=== PATIENT | female | born 1970 | race Caucasian/White ===

== ENCOUNTER → 2022-01-25 07:33 | Outpatient (CLI) | payer BC, SELFPAY ==
--- NOTE | ~2022-01-25 | MR_ITS ---
EXAMINATION: MR knee RT wo con DATE: 01/25/2022 08:06 INDICATION: Right knee pain TECHNIQUE: Magnetic resonance imaging (MRI) of the right knee was performed without intravenous contr ast. Sequences included coronal PD-weighted FSE, coronal PD-weighted FS FSE, sagittal T2-weighted FS E, sagittal PD-weighted FS FSE and axial PD weighted fat saturated FSE. COMPARISON: None. FINDINGS: Medial compartment: Complex tear, oblique and multiple planes which involves the inner half of the posterior horn of the medial meniscus. Partial-thickness chondral ulceration with chondral surface irregularity at the ante rior and posterior weightbearing medial femoral condyle. Additional deep chondral ulceration without degenerative subchondral changes at the central aspect of the medial tibial plateau. Lateral compartment: Lateral meniscus is normal. Chondral swelling with heterogeneous cartilage signal but without definit butch fissuring at the central aspect of the lateral tibial plateau. Normal cartilage along the weightb earing lateral femoral condyle. Patellofemoral compartment: Deep chondral ulceration centered along the medial patellar facet and immediately adjacent medial and lateral patellar facets. Partial-thickness chondral ulceration at the central aspect of the medial t rochlea with chondral surface irregularity without significant cartilage loss at the trochlear groove and lateral trochlea. Ligaments and tendons: Anterior and posterior cruciate ligaments are normal. The medial collateral ligament and fibular melanie ateral ligament complex are normal. The extensor mechanism is normal. The visualized medial and later al hamstring tendons as well as the iliotibial band are normal. Fluid: Small left knee joint effusion. No loose osteochondral bodies identified. Osseous/other: Normal marrow signal. No fracture or abnormal marrow replacing process. Mild soft tissue edema surrou nding the knee. More prominent edema at the superficial suprapatellar fat pad which can be seen with fat pad impingement syndrome. IMPRESSION: 1. Small complex tear at the posterior horn of the medial meniscus. 2. Tricompartmental osteoarthritis at the right knee, mild to moderate severity the patellofemoral co mpartment and moderate to high-grade patellar chondromalacia and mild with moderate grade chondromala jayme in the medial compartment and minimal left with low-grade chondromalacia in the lateral compartme nt. 3. Likely reactive small right knee joint effusion. 4. Edema at the superficial suprapatellar fat pad which can be seen with fat pad impingement syndrome . Reviewed, dictated and finalized at location B. IMPRESSION: 1. Small complex tear at the posterior horn of the medial meniscus. 2. Tricompartmental osteoarthritis at the right knee, mild to moderate severity the patellofemoral compartment and moderate to high-grade patellar chondromala jayme and mild with moderate grade chondromalacia in the medial compartment and m inimal left with low-grade chondromalacia in the lateral compartment. 3. Likely reactive small right knee joint effusion. 4. Edema at the superficial suprapatellar fat pad which can be seen with fat pa d impingement syndrome.
== END ==
PROVIDERS: PCP Orthopaedic Surgery; Visit Provider Orthopaedic Surgery
DX: S83.231A Complex tear of medial meniscus, current injury, right knee, initial encounter (principal); M17.11 Unilateral primary osteoarthritis, right knee; M22.41 Chondromalacia patellae, right knee; M79.89 Other specified soft tissue disorders
CPT/HCPCS: 73721

== ENCOUNTER 2022-02-13 01:06 | Day surgery (SDC) | payer BC, SELFPAY ==
[2022-02-08 12:28] VITALS: BMI 25.0
--- NOTE | 2022-02-08 12:34 | PC.NURSE ---
Report to the Outpatient Waiting Room, entrance under the green pavilion located off [facility], at time 1130 on date 02/13/22. OR Time: 1330. - You and your visitor will be asked a series of questions to screen for COVID 19 for your protection. - Only one visitor is allowed at this time. - The patient visitor is requested to leave or wait in car when not with patient. - A mask is required within the hospital. Patients may have clear liquids (water, carbonated beverages, clear teas, apple juice) until 3 hours prior to surgery with a maximum of 20 ounces. - No food from midnight until time of surgery Take the following medications with a SIP of water the morning of surgery: INHALER Medications to discontinue per physician: N/A Date to take last dose: N/A Please no make-up, nail slovenian, hairspray, perfume, deodorant, or body powder the day of surgery. No jewelry (including any body piercings) or valuables the day of surgery, leave them at home. Please take a shower or bath the night before, or the morning of, surgery with an antibacterial soap. Wear comfortable, loose fitting clothing. - Jewelry must be removed prior to entering the operating room. Rings and piercings that are not removed may be cut off. - The hospital will not accept responsibility for valuables. - Please leave all valuables, including medications, at home the day of surgery. If you are going home after surgery, a licensed ambulance driver paramedic must drive you home. - NO public transportation without another adult. - We recommend that an adult stay with you for 24 hours following discharge. - We also recommend that you do not drive, make important decision, drink alcoholic beverages, or take any drugs that were not prescribed by your health care provider for at least 24 hours after your discharge time. Follow any additional instructions given to you from your surgeon. If you or anyone in your household have experienced Covid symptoms in the past week, please notify your surgeon or the nurse liaison at the phone number below for possible testing. Telephone instructions given to PT Johnny NUNEZ and asked if any additional questions and then verbalized understanding. Patient advised to call surgeon office or pre surgery nurse liaison [phone] if any additional questions.
--- NOTE | 2022-02-10 13:48 | P.PNAN_ITS ---
Anes - Initial Pre Proc Eval Procedure: Operation Date: 02/13/22 12:00 Proposed Procedures p Right Knee Arthroscopy, Meniscectomy - Diego Stapleton MD Date/Time: 02/10/22 13:48 Surgeon: Diego Stapleton MD Pre Op Diagnosis: Rt Knee Medial Meniscus Tear Patient Data Age: 52 Gender: F Height: 1.68 m Weight: 70.31 kg Allergies Allergy/AdvReac Type Severity Reaction Status Date / Time Penicillins Allergy Unknown Rash Verified 02/08/22 12:27 Home Medications Medication Instructions Recorded Confirmed Type albuterol sulfate 90 mcg/actuation 2 puff inhalation QID 08/20/19 02/13/22 History aerosol inhaler rizatriptan 10 mg disintegrating 10 mg PO ONCE PRN Migraine Headache 08/20/19 02/13/22 History tablet hydrocodone 7.5 mg-acetaminophen 1 tablet PO Q4-6H PRN pain #28 tabs 02/13/22 Rx 325 mg tablet Patient hx anesthesia problems: none Family hx anesthesia problems: none Results Review: All pre-operative results and documents have been reviewed as part of the pre- operative evaluation. FORMERLY [facility] Past Medical History Medical History (Updated 01/31/22 @ 08:22 by Diego Stapleton MD) Allergies Anemia Asthma Degenerative arthritis of knee, bilateral Endometriosis Migraines Seasonal allergies Surgical History Surgical History (Updated 02/13/22 @ 13:08 by Diego Stapleton MD) History of arthroscopy of right knee February 13, 2022 History of cholecystectomy History of partial hysterectomy Family History Family History Mother Family history of lung cancer Other Hypertension Social History Social History Smoking status: Never smoker Alcohol intake: never Substance use: never Substance use type: does not use Living arrangements: with family 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 Informed Consent: The patient's anesthetic plan and its attendant risks and benefits were discussed with the patient/family/POA. Questions were solicited and answers provided to the satisfaction of the patient/family/POA.
[2022-02-13] VITALS (10 sets, daily range): BP systolic 91–122; BP diastolic 52–81; PULSE 48–74; RESP 12–20; TEMP 36.2–36.8; O2SAT 100
[2022-02-13] MEDS: ACETAMINOPHEN 500 MG TABLET 1000 MG PO (10:44)
--- NOTE | 2022-02-13 10:59 | WPDANESEPPF ---
Anes - Initial Pre Proc Eval Procedure: Operation Date: 02/13/22 12:00 Proposed Procedures p Right Knee Arthroscopy, Meniscectomy - Diego Stapleton MD Date/Time: 02/13/22 10:59 Surgeon: Diego Stapleton MD Pre Op Diagnosis: Rt Knee Medial Meniscus Tear Patient Data Age: 52 Gender: F Height: 1.68 m Weight: 70.31 kg Allergies Allergy/AdvReac Type Severity Reaction Status Date / Time Penicillins Allergy Unknown Rash Verified 02/08/22 12:27 Home Medications Medication Instructions Recorded Confirmed Type albuterol sulfate 90 mcg/actuation 2 puff inhalation QID 08/20/19 02/13/22 History aerosol inhaler rizatriptan 10 mg disintegrating 10 mg PO ONCE PRN Migraine Headache 08/20/19 02/13/22 History tablet Patient hx anesthesia problems: none Family hx anesthesia problems: none Results Review: All pre-operative results and documents have been reviewed as part of the pre-operative evaluation. 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 Informed Consent: The patient's anesthetic plan and its attendant risks and benefits were discussed with the patient/family/POA. Questions were solicited and answers provided to the satisfaction of the patient/family/POA.
--- NOTE | 2022-02-13 11:31 | WPDHPUPDATE1 ---
History and Physical Update Update Date/Time: 02/13/22 11:31 History and Physical has been reviewed, including an updated exam of the patient. There are NO changes in the patient's condition. Risks, benefits, and alternatives have been discussed and questions answered. Patient agrees to proceed with procedure.
[2022-02-13] MEDS: LACTATED RINGERS 1,000 ML 30 ML IV CONT ×2 (12:01→14:18)
[2022-02-13] MEDS: KETOROLAC 15 MG/ML VIAL (*BKC) IV PUSH (12:04)
[2022-02-13] MEDS: ceFAZolin 2 GM/D5W 50 ML 2 GM/50 ML BAG IVPB (12:08)
[2022-02-13] MEDS: TRANEXAMIC ACID 1,000 MG/10 ML AMPUL 1000 MG TOPICAL (12:35)
--- NOTE | 2022-02-13 13:08 | W.PM.PROC2 ---
Procedure Note - Detailed Date of Procedure 02/13/22 Pre-op Diagnosis Rt Knee Medial Meniscus Tear with synovitis Post-op Diagnosis Same Procedure Performed Right knee arthroscopy, partial medial meniscectomy, extensive synovectomy Surgeon Diego Stapleton MD Anesthesia General Description of Procedure The patient was identified and proper site identified and she was taken to the operating room, transferred to the OR table placing her supine taking care to pad the torso and extremities. After general anesthetic induction and intubation, a nonsterile tourniquet was placed high on the right thigh. The right lower extremity was positioned, prepped and draped in usual sterile fashion. 10 cc of 1% lidocaine was injected into the subcutaneous tissue in the area of the portals at start of the procedure, and an additional 10 at the end. The portals were established and the arthroscopy was carried out. Articular cartilage in the anterior compartment had extensive grade 4 changes on the undersurface of the patella. There was some grooving that was starting to be noted in the medial facet of the patella as well as medial femoral condyle. There was complex tearing of the medial meniscus in the posterior horn. This was contoured back to stable rim with basket forceps and a shaver. Lateral articular meniscal cartilage was in good shape. There is extensive areas of synovitis in the gutters, pouch and in the infrapatellar region. Extremity was exsanguinated the tourniquet was inflated to 300 millimeter mercury remaining up for about 12 minutes. Extensive synovectomy was carried out an ArthroCare Wand was used for hemostasis. The knee was injected with 1 gram of tranexamic acid intra-articularly after it had been flushed with a copious amount of arthroscopic fluid and then the equipment was removed. Portals were closed with three O nylon suture and a sterile dressing was applied. She tolerated the procedure well, was awakened, extubated and taken to recovery area in stable condition. There were no known intraoperative complications. Estimated blood loss was negligible; she received perioperative antibiotics. Estimated Blood Loss 15 Tourniquet Time 12 Drains No Packing No Pathology None sent Complications No immediate complications Condition Stable Disposition PACU
[2022-02-13] MEDS: fentaNYL CITRATE INJ (*CRX) 100 MCG/2 ML VIAL 25 MCG IV PUSH ×7 (13:17→14:05)
[2022-02-13] MEDS: HYDROmorphone HCL INJ (*CRX) 1 MG/ML SYR 0.5 MG IV PUSH ×2 (14:12→14:20)
[2022-02-13] MEDS: oxyCODONE HCL (*CRX) 5 MG TAB IR PO (14:42)
--- NOTE | 2022-02-13 15:30 | SUR.PHASEII ---
1525 - dr. weir notified of pt's c/o pain. dr. garcia in room talking with pt. will administer a block.
--- NOTE | 2022-02-14 08:36 | WPDANESPNB ---
Anes - Peripheral Nerve Block Date/Time: 02/13/22 08:36 I have discussed with the patient/family/POA the placement of a peripheral nerve block for post-operative pain management, including associated risks, benefits, complications, and side effects. Alternative methods of post-operative analgesia were detailed. Questions were solicited and answers provided to the satisfaction of the patient/family/POA. Time-Out: A pre-procedural Time-Out was completed immediately before starting the procedure and confirmed: Patient Identification, Site, Procedure, Patient Position and the Availability of Requisite Equipment. Clinical Indications: Acute post-operative pain management requested by the operative surgeon. Nerve Block Insertion Note Anes-nerve block: adductor canal right Patient position: supine Skin prep: chlorhexidine Needle: 22 gauge, stimulating, insulated echogenic needle. Needle length: 80 mm Technique: ultrasound Injectate: bupivacaine 0.5% with epi 5 mcg/ml (30cc - no epi) Observations: tolerated well Complications: none Procedure start time:: 1527 Procedure end time:: 153
== END 2022-02-13 16:00 | disposition home or self-care (01) ==
PROVIDERS: Visit Provider Orthopaedic Surgery
PROC: (CPT 29870; principal; 2022-02-13 12:00)
DX: S83.231A Complex tear of medial meniscus, current injury, right knee, initial encounter (principal); X50.0XXA Overexertion from strenuous movement or load, initial encounter; Y93.B9 Activity, other involving muscle strengthening exercises; M65.861 Other synovitis and tenosynovitis, right lower leg; G89.18 Other acute postprocedural pain; J45.909 Unspecified asthma, uncomplicated; Z79.51 Long term (current) use of inhaled steroids
CPT/HCPCS: 29881; 29876; 64447; A9270; J0690; J1100; J1170; J1885; J2250; J2405; J2704; J3010; J7120

== ENCOUNTER 2022-03-07 09:30 | Outpatient (RCR) | payer BC, SELFPAY ==
--- NOTE | 2022-02-16 10:06 | PTOPEVAL ---
PHYSICAL THERAPY INITIAL EVALUATION. Thank you for referring Asia Chavez to [facility].? The patient is scheduled to be seen for therapy? 2x/week for 4 weeks. Please review, sign, date and return this plan of care TRACI. I agree with and certify that the following plan of care is medically necessary. Referring Physician Date Attending Provider: Diego Stapleton MD *PT Outpatient Evaluation Start: 02/16/22 Evaluation Information Diagnosis R knee meniscectomy Onset 02/13/22 Subjective Information Pt is s/p R knee meniscectomy Query Text:As Reported By Patient/ on 02/13/22. Pts has a [employer] job Family but her job requires her to walk on rock and gravel. She enjoys exercising, playing volleyball, and walking her dogs, she would like to return to this. Pain Assessment Right Knee(s) Reported Pain Level 5 Pain Description Numbness Pain Frequency Acute,Intermittent Lowest Pain Intensity 5 Greatest Pain Intensity 8 Lower Extremity Range of Motion Gross Lower Extremity Range of Motion R knee active flexion 70 deg Comments R knee active extension -35 L knee active flexion 135 L knee active extension 0 Lower Extremity Muscle Strength Testing Gross Lower Extremity Strength L knee grossly 5/5 did not assess R knee d/t pain Palpation Assessment Palpation incisions covers in clean bandage Balance Assessment 5 Time Sit to Stand Time in Seconds 35 5 Time Sit to Stand Comments Without use of UEs, lateral Query Text:Normative Data: If Greater weight shift to L, Than 15 Seconds, 74% Increase Risk for demonstrates TTWB with RLE, Recurrent Falls significant increase in pain Gait Assessment Ambulation Assistive Devices Crutches Weight Bearing Status - Right As Tolerated Weight Bearing Comment demonstrates TTWB on R Additional Ambulation Comments - adjusted crutches this date Safety Assessment Factors Affecting Safety Pain,Surgical Interventions General Exercise Exercise Description - supine heel slides - able to Query Text:Record Sets, Reps, tolerate 2 d/t pain Resistance, and Position - SAQ - able to activate quad on / attempts - limited d/t pain - Quad set - unable to achieve positioning d/t pain - LAQ - able to active quad on 13 attempts - limited d/t pain -
--- NOTE | 2022-02-23 13:10 | PCPTNOTE ---
Patient no showed to appointment. Attempted to leave message however unable to at this time.
--- NOTE | 2022-02-28 15:09 | PCPTNOTE ---
Patient did not show up for scheduled appointment this date.
--- NOTE | 2022-03-02 12:49 | PCPTNOTE ---
Patient did not show to appointment this date. This is the 3rd no show. Left message on voicemail to have patient call clinic back.
--- NOTE | 2022-03-07 10:14 | PCPTNOTE ---
Patient no showed to appointment this date.
--- NOTE | 2022-03-08 15:28 | PCPTNOTE ---
Attending Provider: Diego Stapleton MD Patient:Asia Chavez Date of :1970 PHYSICAL THERAPY DISCHARGE SUMMARY. Patient has not returned for any further treatments since 03/07/2022. Patient has no showed up for 3 consecutive scheduled visits, therefore she will be discharged at this time. Patient?s initial visit was on 02/16/2022 and she had a total of 2 visits. Thank you for referring this patient to [facility]. Please review, sign, date and return this discharge summary TRACI. I have been updated about the patient's current status and I agree with discharge from the above service at this time. Referring Physician Date
== END 2022-03-09 10:09 | disposition home or self-care (01) ==
LOC: ANHPT 09:30
PROVIDERS: Visit Provider Orthopaedic Surgery
DX: M25.561 Pain in right knee (principal); S83.241A Other tear of medial meniscus, current injury, right knee, initial encounter
CPT/HCPCS: 97110; 97116; 97161

== ENCOUNTER 2022-05-05 14:35 | Outpatient (CLI) | payer BC, SELFPAY ==
--- NOTE | ~2022-05-05 | US_ITS ---
EXAMINATION: US venous doppler LE RT DATE: 05/05/2022 15:25 INDICATION: Right lower limb pain TECHNIQUE: Grayscale ultrasound images without and with compression and Doppler ultrasound images of the right lower extremity veins were obtained. COMPARISON: None. FINDINGS: The visualized portions of right common femoral vein, profunda (deep) femoral vein, femoral vein, pop liteal vein, peroneal trunk, posterior tibial veins, peroneal veins, gastrocnemius vein and greater s aphenous vein outflow are patent. 6.0 x 1.6 x 1.3 cm loculated fluid collection at the right poplitea l fossa which extends caudally along the superficial fascia but is likely the gastrocnemius muscle. T his could represent a Vinson's cyst although on the prior MRI of the right knee dated 01/25/2022 there is only a small ganglion cyst which remains deep to the semimembranosus muscle belly suggesting this is either new or potentially represent a hematoma situated in the setting of muscle strain. Different ial would also include abscess although there is no evidence surrounding hyperemia to more specifical ly suggest this. IMPRESSION: 1. No deep venous thrombosis in the right lower limb. 2. 6 x 1.6 x 1.3 cm loculated fluid collection at the right popliteal fossa which could represent eit her a Vinson's cyst, new since MRI dated 01/25/2022 or hematoma cysts in the setting of muscle strain. Reviewed, dictated and finalized at location A. IMPRESSION: 1. No deep venous thrombosis in the right lower limb. 2. 6 x 1.6 x 1.3 cm loculated fluid collection at the right popliteal fossa whi ch could represent either a Vinson's cyst, new since MRI dated 01/25/2022 or johnnie jeremy cysts in the setting of muscle strain.
--- NOTE | ~2022-05-05 | XR_ITS ---
XR ankle RT 2V DATE: 05/05/2022 15:00 INDICATION: History of Achilles tendon TECHNIQUE: AP and lateral views COMPARISON: None FINDINGS: Mild plantar calcaneal enthesopathy without associated erosive change or periostitis. No fracture or dislocation of the ankle or disruption of the ankle mortise. No periosteal reaction or bone destruction. IMPRESSION: Mild plantar calcaneal enthesopathy Reviewed, dictated and finalized at location B.
--- NOTE | ~2022-05-05 | XR_ITS ---
XR tibia fibula RT 2V DATE: 05/05/2022 15:01 INDICATION: Strain of Achilles tendon TECHNIQUE: AP and lateral views of right lower leg COMPARISON: None FINDINGS: No fracture or dislocation, periosteal reaction or bone destruction of the tibia or fibula. Normal alignment at the knee and ankle joints. IMPRESSION: Negative Reviewed, dictated and finalized at location B. IMPRESSION: Negative
== END 2022-05-05 14:36 | disposition home or self-care (01) ==
PROVIDERS: PCP Family Medicine; Visit Provider Nurse Practitioner Family
DX: M79.604 Pain in right leg (principal); M79.89 Other specified soft tissue disorders; M76.60 Achilles tendinitis, unspecified leg; S86.019A Strain of unspecified Achilles tendon, initial encounter
CPT/HCPCS: 73590; 73600; 93971

== ENCOUNTER → 2022-05-11 13:00 | Outpatient (CLI) | payer BC, SELFPAY ==
--- NOTE | ~2022-05-11 | MR_ITS ---
EXAMINATION: MR lower leg RT wo con DATE: 05/11/2022 13:45 INDICATION: Right calf pain. Achilles rupture. TECHNIQUE: Magnetic resonance imaging (MRI) of the right calf was performed without intravenous contr ast. Sequences included axial, sagittal and coronal fluid sensitive FSE STIR and T1-weighted FSE. The contralateral left calf is included on the coronal images. COMPARISON: Radiographs dated 05/05/22 FINDINGS: Alignment of the visualized bones is normal. Normal bone marrow signal throughout with no fracture, r eactive edema or pathologic marrow replacing process. There is subcutaneous edema most prominent abou t the right ankle and hindfoot and to lesser degree about the right calf. In the proximal calf this a ppears centered primarily about a Vinson's cyst which measures 8.5 similar proximal to distal and up t o 3.0 x 1.2 cm in maximal transaxial dimensions. A portion of the cyst appears to track within the pl anes of the superficial muscular fascia overlying the medial head of the gastrocnemius muscle. The un derlying muscle appears normal. There is mild feathery muscular edema at the distalmost soleus muscle which could be related to low-grade strain. There is mild distal Achilles tendinosis without discret e tear. Remaining muscles and tendons in the right calf are unremarkable. Flow-voids consistent with expected patency are seen in the popliteal, anterior and posterior tibial and peroneal arteries and v eins. IMPRESSION: 1. Mild feathery edema in the distalmost right soleus muscle consistent with low-grade strain. 2. Mild distal Achilles tendinosis without discrete tear. 3. Large Vinson's cyst which tracks caudally within the fascial planes of the superficial muscular fas jayme overlying the medial head gastrocnemius. Reviewed, dictated and finalized at location A. IMPRESSION: 1. Mild feathery edema in the distalmost right soleus muscle consistent with lo w-grade strain. 2. Mild distal Achilles tendinosis without discrete tear. 3. Large Vinson's cyst which tracks caudally within the fascial planes of the willis perficial muscular fascia overlying the medial head gastrocnemius.
== END ==
PROVIDERS: PCP Orthopaedic Surgery; Visit Provider Orthopaedic Surgery
DX: S86.011A Strain of right Achilles tendon, initial encounter (principal); X58.XXXA Exposure to other specified factors, initial encounter; M76.61 Achilles tendinitis, right leg
CPT/HCPCS: 73718

== ENCOUNTER 2022-06-08 10:43 | Outpatient (CLI) | payer BC, SELFPAY ==
[2022-06-08 11:04] LABS: Basophils Absolute Auto 0.1 K/mm3 (0.0-0.1); Basophils Percent Auto 0.7 % (0.2-1.2); Eosinophils Absolute Auto 0.2 K/mm3 (0-0.3); Eosinophils Percent Auto 2.9 % (0-4.4); Hematocrit 37.9 % (37.0-47.0); Hemoglobin 12.3 g/dL (12.0-15.0); Immature Granulocyte Absolute 0.02 K/mm3 (0.00-0.031); Immature Granulocyte Percent A 0.3 % (0-0.5); Lymphocytes Absolute Auto 1.79 K/mm3 (0.9-3.2); Lymphocytes Percent Auto 25.7 % (18.3-44.2); Mean Corpuscular HGB Conc 32.5 g/dl (32-36); Mean Corpuscular Hemoglobin 33.8 pg (26-34); Mean Corpuscular Volume 104.1 fl (80-100); Mean Platelet Volume 11.2 fl (7.4-10.4); Monocytes Absolute Auto 0.5 K/mm3 (0.1-0.6); Monocytes Percent Auto 7.3 % (2.6-8.5); Neutrophils Absolute Auto 4.4 K/mm3 (1.3-6.7); Neutrophils Percent Auto 63.1 % (45.5-73.1); Platelet Count Result 309 k/mm3 (150-375); Red Blood Count 3.64 M/mm3 (4.2-5.4); Red Cell Distribution Width 12.4 % (11.5-14.5)
[2022-06-08 11:19] LABS: Alanine Aminotransferase 77 U/L (6-35); Albumin Level 4.1 g/dL (3.5-5.1); Alkaline Phosphatase 47 U/L (38-126); Anion Gap 7 mmol/L (8-16); Aspartate Amino Transferase 232 U/L (14-36); Bilirubin,Total 0.3 mg/dL (0.2-1.3); Blood Urea Nitrogen 13 mg/dL (7-17); Calcium 8.4 mg/dL (8.4-10.2); Carbon Dioxide 27 mmol/L (22-30); Chloride 105 mmol/L (98-107); Estimated Glomerular Filt Rate > 60; Glucose 80 mg/dL (65-110); Sodium 139 mmol/L (137-145)
== END 2022-06-08 10:44 | disposition home or self-care (01) ==
LOC: ANHLAB 10:44
PROVIDERS: PCP Family Medicine; Visit Provider Nurse Practitioner Family
DX: K92.2 Gastrointestinal hemorrhage, unspecified (principal)
CPT/HCPCS: 36415; 80053; 85025

== ENCOUNTER 2022-06-08 17:13 | Emergency (ER) | payer BC, SELFPAY ==
--- NOTE | ~2022-06-08 | US_ITS ---
US abdomen limited INDICATION: Elevated liver function tests. PROCEDURE: Realtime right upper abdominal ultrasound. COMPARISON: No prior studies for comparison. FINDINGS: The pancreas is normal without focal mass or pancreatic ductal dilation. Liver echotexture within normal limits. Liver is enlarged measuring 16.9 cm. There is normal directional flow in the portal vein. Gallbladder is surgically absent. Common bile duct measures 2 mm. IMPRESSION: 1: Hepatomegaly. Reviewed, dictated and finalized at location A. IMPRESSION: 1: Hepatomegaly.
[2022-06-08 17:16] VITALS: BP 125/85; PULSE 75; RESP 20; TEMP 36.2; O2SAT 94
--- NOTE | 2022-06-08 17:17 | PC.NURSE ---
US made aware US ordered on pt.
--- NOTE | 2022-06-08 19:15 | PC.NURSE ---
patient states wait is too long and left triage area
== END 2022-06-08 19:15 | disposition left against medical advice (07) ==
LOC: ANHED 19:29
PROVIDERS: Emergency Provider Emergency Medicine; PCP Family Medicine
DX: R11.2 Nausea with vomiting, unspecified (principal)
CPT/HCPCS: 76705; 99199

== ENCOUNTER 2022-06-09 18:21 | Outpatient (CLI) | payer BC, SELFPAY ==
--- NOTE | ~2022-06-09 | CT_ITS ---
EXAMINATION: CT abdomen pelvis w con DATE: 06/09/2022 19:28 INDICATION: Right-sided abdomen and back pain TECHNIQUE: Computed tomography (CT) of the abdomen and pelvis was performed with 100 cc Omnipaque 350 intravenous contrast. The dose-length product was 539.17 mGy-cm. Automated exposure control and iter ative reconstruction technique were employed. COMPARISON: CT dated 08/02/2015 FINDINGS: There there breast implants. Heart size normal. The liver, there is fatty infiltration of t he liver. Status post cholecystectomy. The spleen, pancreas, adrenal glands and kidneys are unremarka ble. There is a 5 mm groundglass nodule in the right lobe, image 3. There is 2 mm right lower lobe no dule, image 3. There are additional small nodules in the right middle lobe measuring 2 mm. There is a 8 mm right lower lobe nodule, image 44 which is not significantly changed in appearance compared wit h prior examination.. There is a 1.4 x 2.6 cm cystic lesion of the pancreatic body, unchanged. The ad renal glands and kidneys are unremarkable. Nonobstructive bowel gas pattern. Small fat-containing umb ilical hernia. No free air or free fluid. Bladder is unremarkable. Small hiatal hernia. Mild thickeni ng of the distal esophagus, suspicious for esophagitis. IMPRESSION: 1. Multiple bilateral pulmonary nodules, largest being stable in the right lower lobe measuring 8 mm. Recommend follow-up low dose CT chest in 12 months. 2: Cystic mass of the pancreas measuring 2.6 x 1.4 cm. The differential diagnosis includes pseudocyst , intraductal papillary mucinous neoplasm (IPMN), mucinous cystic neoplasm (MCN), and the less common serous cystadenoma and neuroendocrine tumor. 3: Mild thickening of the distal esophagus, suspicious for esophagitis. Reviewed, dictated and finalized at location A. IMPRESSION: 1. Multiple bilateral pulmonary nodules, largest being stable in the right lowe r lobe measuring 8 mm. Recommend follow-up low dose CT chest in 12 months. 2: Cystic mass of the pancreas measuring 2.6 x 1.4 cm. The differential diagnos is includes pseudocyst, intraductal papillary mucinous neoplasm (IPMN), mucinou s cystic neoplasm (MCN), and the less common serous cystadenoma and neuroendocr ine tumor. 3: Mild thickening of the distal esophagus, suspicious for esophagitis.
== END 2022-06-09 18:22 | disposition home or self-care (01) ==
LOC: ANHIMG 18:23
PROVIDERS: PCP Family Medicine; Visit Provider Nurse Practitioner Family
DX: R10.9 Unspecified abdominal pain (principal); R16.0 Hepatomegaly, not elsewhere classified; R74.01 Elevation of levels of liver transaminase levels; K42.9 Umbilical hernia without obstruction or gangrene; K86.2 Cyst of pancreas; K44.9 Diaphragmatic hernia without obstruction or gangrene
CPT/HCPCS: 74177; Q9967

== ENCOUNTER 2022-06-12 09:56 | Outpatient (CLI) | payer BC, SELFPAY ==
[2022-06-12 10:15] LABS: Basophils Percent Auto 0.9 % (0.2-1.2); Eosinophils Absolute Auto 0.2 K/mm3 (0-0.3); Eosinophils Percent Auto 3.6 % (0-4.4); Hematocrit 38.9 % (37.0-47.0); Hemoglobin 12.8 g/dL (12.0-15.0); Immature Granulocyte Absolute 0.01 K/mm3 (0.00-0.031); Immature Granulocyte Percent A 0.2 % (0-0.5); Lymphocytes Absolute Auto 1.27 K/mm3 (0.9-3.2); Mean Corpuscular HGB Conc 32.9 g/dl (32-36); Mean Corpuscular Volume 103.5 fl (80-100); Monocytes Absolute Auto 0.4 K/mm3 (0.1-0.6); Monocytes Percent Auto 7.7 % (2.6-8.5); Neutrophils Absolute Auto 2.9 K/mm3 (1.3-6.7); Neutrophils Percent Auto 60.6 % (45.5-73.1); Platelet Count Result 312 k/mm3 (150-375); Red Blood Count 3.76 M/mm3 (4.2-5.4); Red Cell Distribution Width 12.3 % (11.5-14.5); White Blood Count 4.7 K/mm3 (4.5-10.0)
[2022-06-12 10:20] LABS: Add Urine Microscopic? NO; Appearance Urine Clear (Clear); Bilirubin Urine Negative (Negative); Blood Urine Negative (Negative); Color Urine Straw (Yellow); Glucose Urine UA Negative (Negative); Ketones Urine Negative (Negative); Leukocyte Esterase Ur Negative LEU/UL (NEGATIVE); Nitrate Urine Negative (Negative); Protein Urine Negative (Negative); Specific Grav Ur 1.005 (1.001-1.035); Urobilinogen Urine Negative mg/dL (<2.0)
[2022-06-12 10:25] LABS: Alanine Aminotransferase 44 U/L (6-35); Albumin Level 4.3 g/dL (3.5-5.1); Alkaline Phosphatase 54 U/L (38-126); Anion Gap 5 mmol/L (8-16); Aspartate Amino Transferase 49 U/L (14-36); Bilirubin,Total 0.3 mg/dL (0.2-1.3); Blood Urea Nitrogen 12 mg/dL (7-17); Calcium 8.4 mg/dL (8.4-10.2); Carbon Dioxide 27 mmol/L (22-30); Chloride 106 mmol/L (98-107); Estimated Glomerular Filt Rate > 60; Glucose 96 mg/dL (65-110); Sodium 138 mmol/L (137-145)
[2022-06-12 11:47] LABS: HAV RESULT Negative (Negative); Hepatitis B Core IgM Result Negative (Negative); Hepatitis B Surface Antigen Negative (Negative); Hepatitis C Virus Antibody Negative (Negative)
== END 2022-06-12 09:57 | disposition home or self-care (01) ==
LOC: ANHLAB 09:58
PROVIDERS: PCP Family Medicine; Visit Provider Nurse Practitioner Family
DX: Z00.00 Encounter for general adult medical examination without abnormal findings (principal); R10.9 Unspecified abdominal pain; R16.0 Hepatomegaly, not elsewhere classified; R74.8 Abnormal levels of other serum enzymes
CPT/HCPCS: 36415; 80053; 80074; 81003; 82728; 84443; 85025; 86038

== ENCOUNTER 2022-06-13 15:17 | Outpatient (CLI) | payer BC, SELFPAY ==
[2022-06-13 16:09] LABS: Basophils Percent Auto 0.3 % (0.2-1.2); Eosinophils Absolute Auto 0.3 K/mm3 (0-0.3); Eosinophils Percent Auto 4.5 % (0-4.4); Hematocrit 41.5 % (37.0-47.0); Hemoglobin 13.8 g/dL (12.0-15.0); Immature Granulocyte Absolute 0.01 K/mm3 (0.00-0.031); Immature Granulocyte Percent A 0.1 % (0-0.5); Lymphocytes Absolute Auto 0.99 K/mm3 (0.9-3.2); Lymphocytes Percent Auto 14.4 % (18.3-44.2); Mean Corpuscular HGB Conc 33.3 g/dl (32-36); Mean Corpuscular Hemoglobin 34.2 pg (26-34); Mean Platelet Volume 11.6 fl (7.4-10.4); Monocytes Absolute Auto 0.4 K/mm3 (0.1-0.6); Neutrophils Absolute Auto 5.1 K/mm3 (1.3-6.7); Neutrophils Percent Auto 74.7 % (45.5-73.1); Platelet Count Result 320 k/mm3 (150-375); Red Blood Count 4.03 M/mm3 (4.2-5.4); Red Cell Distribution Width 12.4 % (11.5-14.5); White Blood Count 6.9 K/mm3 (4.5-10.0)
[2022-06-13 16:23] LABS: Alanine Aminotransferase 42 U/L (6-35); Albumin Level 4.8 g/dL (3.5-5.1); Alkaline Phosphatase 51 U/L (38-126); Aspartate Amino Transferase 44 U/L (14-36); Bilirubin,Total 0.5 mg/dL (0.2-1.3); Lipase 41 U/L (23-300)
[2022-06-13 18:36] LABS: Iron 113 ug/dL (37-170)
[2022-06-13 18:45] LABS: Percent Iron Saturation 28 % (20-50)
[2022-06-14 12:01] LABS: CRP < 0.5 mg/dL (<1.0); Creatine Kinase 377 U/L (30-135)
[2022-06-15 11:59] LABS: Mitochondrial (M2) Ab (IgG) <=20.0 U (<=20.0)
[2022-06-15 12:34] LABS: GGT 10 U/L (3-70)
[2022-06-16 13:10] LABS: Actin Antibody (IgG) <20 U (<20)
[2022-06-16 21:06] LABS: Ceruloplasmin 30 mg/dL (18-53)
[2022-06-17 05:26] LABS: LKM 1 Antibody <=20.0 U (<=20.0)
[2022-06-21 17:57] LABS: Alpha Fetoprotein Tumor Marker 2.7 ng/mL (<6.1)
== END 2022-06-13 15:18 | disposition home or self-care (01) ==
LOC: ANHLAB 15:19
PROVIDERS: PCP Family Medicine; Visit Provider Nurse Practitioner Family
DX: R74.8 Abnormal levels of other serum enzymes (principal); R16.0 Hepatomegaly, not elsewhere classified; R10.11 Right upper quadrant pain; K86.2 Cyst of pancreas
CPT/HCPCS: 36415; 80076; 82105; 82390; 82550; 82728; 82977; 83516; 83520; 83540; 83550; 83690; 85025; 86038; 86039; 86140; 86376

== ENCOUNTER 2022-08-11 08:42 | Outpatient (CLI) | payer BC, SELFPAY ==
--- NOTE | ~2022-08-11 | MR_ITS ---
EXAMINATION: MR MRCP wo/w con/w 3D wo ind DATE: 08/11/2022 09:56 INDICATION: Elevated liver enzymes, cystic pancreatic lesion TECHNIQUE: Magnetic resonance imaging (MRI) of the abdomen was performed without and with intravenous contrast. Sequences included coronal T2-weighted SS-FSE ARC, coronal T2-weighted FS SS-FSE, coronal T2-weighted 2D FS FIESTA, Water:Coronal LAVA-Flex, sagittal T2-weighted SS-FSE ARC, axial SSFSE ARC, axial 3D DualEcho, axial DWI B=600, axial T1-weighted LAVA, FAT:Coronal LAVA-Flex, and coronal in and opposed phase LAVA-Flex. Thick-slab T2-weighted FRFSE-XL images were obtained for magnetic resonance cholangiopancreatography (MRCP). Maximum intensity projection 3-D reconstructions of the volumetric data were created by the technologist. Postcontrast sequences included a time course of axial T1-weig hted LAVA, FAT:Coronal LAVA-Flex, coronal in and opposed phase LAVA-Flex, and Water:Coronal LAVA-Flex . COMPARISON: CTs dated 06/09/2022, 08/02/2015, and 06/03/2015 CONTRAST: Multihance, 13 cc FINDINGS: ABDOMEN MRI: There is a partially imaged 8 mm nodule of the right lower lobe. The heart size is asif l. Bilateral breast implants are noted. The gallbladder is surgically absent. The liver, spleen, and adrenal glands are normal. There is a chronic 2.3 x 1.6 cm fluid collection situated between the stom ach and body of the pancreas which is without enhancement after contrast administration. The mass vivar s not definitely arise from the pancreas. There are no pathologically enlarged abdominal lymph nodes. There are no dilated loops of bowel. ABDOMEN MRCP: The common bile duct measures up to 7 mm, likely related to post cholecystectomy state. No intrahepatic biliary dilatation is identified. There are no stones or stricture of the common sina e duct. The pancreatic duct is normal in course and caliber. IMPRESSION: 1. Mild enlargement of the common bile duct, consistent with post cholecystectomy state. 2. Chronic fluid collection situated between the stomach and body of the pancreas which could reflect sequela of prior pancreatitis or possibly gastric diverticulum. Reviewed, dictated and finalized at location A. ALS ANALYST IMPRESSION: 1. Mild enlargement of the common bile duct, consistent with post cholecystecto my state. 2. Chronic fluid collection situated between the stomach and body of the pancre as which could reflect sequela of prior pancreatitis or possibly gastric divert iculum.
[2022-08-11 10:43] LABS: Alanine Aminotransferase 19 U/L (6-35); Albumin Level 4.3 g/dL (3.5-5.1); Alkaline Phosphatase 48 U/L (38-126); Amylase 66 U/L (30-110); Aspartate Amino Transferase 38 U/L (14-36); Bilirubin,Total 0.5 mg/dL (0.2-1.3); CRP < 0.5 mg/dL (<1.0); Creatine Kinase 412 U/L (30-135)
[2022-08-22 10:27] LABS: ALT 11 U/L (6-29); Alpha-2-Macroglobulin 166 mg/dL (106-279); Apolipoprotein A1 184 mg/dL (101-198); Fibrosis Score 0.04; Fibrosis Stage F0; GGT 6 U/L (3-70); Haptoglobin 97 mg/dL (43-212); Necroinflammat Act Grade A0; Total Bilirubin 0.3 mg/dL (0.2-1.2)
== END 2022-08-11 08:43 | disposition home or self-care (01) ==
PROVIDERS: PCP Family Medicine; Visit Provider Nurse Practitioner Family
DX: R74.8 Abnormal levels of other serum enzymes (principal); R16.0 Hepatomegaly, not elsewhere classified; R10.11 Right upper quadrant pain; K86.2 Cyst of pancreas; R93.89 Abnormal findings on diagnostic imaging of other specified body structures
CPT/HCPCS: 36415; 74183; 76376; 80076; 81596; 82150; 82550; 86140; A9577

== ENCOUNTER 2022-09-28 09:43 | Outpatient (CLI) | payer BC, SELFPAY ==
[2022-09-28 11:38] LABS: Erythrocyte Sedimentation Rate 14 mm/hr (0-20)
[2022-10-02 08:20] LABS: RNP Antibodies <1.0
[2022-10-03 21:31] LABS: Aldolase 6.1 U/L (<=8.1)
== END 2022-09-28 09:44 | disposition home or self-care (01) ==
LOC: ANHLAB 09:45
PROVIDERS: PCP Family Medicine; Visit Provider Internal Medicine Gastroenterology
DX: G72.9 Myopathy, unspecified (principal); M62.81 Muscle weakness (generalized)
CPT/HCPCS: 36415; 82085; 85652; 86235

== ENCOUNTER 2022-11-08 00:56 | Day surgery (SDC) | payer BC, SELFPAY ==
[2022-09-15 14:48] VITALS: BMI 24.5
--- NOTE | 2022-10-11 13:20 | PC.NURSE ---
Pt updated re rescheduled EGD date/arrival/procedure time. Pt verbalized understanding and denied any changes to home medications/health history since previous PAT call completed 09/15/21.
[2022-11-07 10:14] VITALS: BMI 24.5
[2022-11-08 07:40] VITALS: BP 121/70; PULSE 71; RESP 18; TEMP 36.6; O2SAT 100
[2022-11-08] MEDS: LACTATED RINGERS 1,000 ML 150 ML IV CONT (07:58)
--- NOTE | 2022-11-08 08:03 | P.PNAN_ITS ---
Anes - Initial Pre Proc Eval Procedure: Operation Date: 11/08/22 08:30 Proposed Procedures p Esophagogastroduodenoscopy - Alexx Saenz MD Date/Time: 11/08/22 08:03 Surgeon: Alexx Saenz MD Pre Op Diagnosis: gastric ulcer Patient Data Age: 52 Gender: F Height: 1.68 m Weight: 69 kg Last Vital Signs Temp 97.9 F 11/08/22 07:40 Pulse 71 11/08/22 07:40 Resp 18 11/08/22 07:40 BP 121/70 11/08/22 07:40 Pulse Ox 100 11/08/22 07:40 O2 Del Method Room Air 11/08/22 07:40 Allergies Allergy/AdvReac Type Severity Reaction Status Date / Time Penicillins Allergy Unknown Anaphylaxis Verified 11/08/22 07:37 Home Medications Medication Instructions Recorded Confirmed Type albuterol 90 mcg/actuation aerosol 90 mcg inhalation BID 09/15/22 11/07/22 History inhaler omeprazole 40 mg capsule,delayed 40 mg PO BID 10/11/22 11/07/22 History release Patient hx anesthesia problems: none Family hx anesthesia problems: none Results Review: All pre-operative results and documents have been reviewed as part of the pre- operative evaluation. [facility] Past Medical History Medical History (Updated 09/28/22 @ 09:42 by Alexx Saenz MD) Abnormal finding on imaging Allergies Anemia Asthma Degenerative arthritis of knee, bilateral Elevated creatine kinase level Elevated liver enzymes Endometriosis Gastric ulcer Hepatomegaly Migraines Muscle weakness Myopathic disease Pancreatic cyst Ruptured Bakers cyst right knee May 2022 RUQ pain Seasonal allergies Surgical History Surgical History History of arthroscopy of right knee February 13, 2022 History of cholecystectomy History of partial hysterectomy Family History Family History Mother Family history of lung cancer Other Hypertension Social History Social History Smoking status: Never smoker Alcohol intake: never Substance use: never Substance use type: does not use Living arrangements: with family Occupation/Education: occupation 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 Informed Consent: The patient's anesthetic plan and its attendant risks and benefits were discussed with the patient/family/POA. Questions were solicited and answers provided to the satisfaction of the patient/family/POA.
--- NOTE | 2022-11-08 08:21 | PM.HPGS ---
History of Present Illness History of Present Illness Consent: Risks, benefits, and alternatives have been discussed and questions answered. Patient agrees to proceed with procedure. Chief complaint: gastric ulcer Narrative: Asia Chavez is a 52 year old female with epigastric pain on omeprazole, found to have gastric ulcer when had EUS of pancreas, also had elevated ck Review of Systems Constitutional: Constitutional: Denies headache(s) Eyes: Eyes: Denies blurry vision ENT: Reports Normal hearing present, Denies headache(s) and Denies neck pain Cardiovascular: Cardiovascular: Denies chest pain and Denies dyspnea Respiratory: Respiratory: Denies dyspnea Gastrointestinal: Gastrointestinal: Reports no additional gastrointestinal complaints Genitourinary: Genitourinary: Denies dysuria Musculoskeletal: Musculoskeletal: Denies neck pain Integumentary/Breasts: Skin/Breast: Denies dry skin Neurologic: Reports Normal hearing present, Denies headache(s) and Denies weakness Psychiatric: Psychiatric: Denies anxiety Endocrine: Endocrine: Denies change in body appearance Hematologic/Lymphatic: Hematologic/Lymphatic: Denies easy bleeding Allergic/Immunologic: Allergic/Immunologic: Denies urticaria PMF Past Medical History Medical History (Updated 09/28/22 @ 09:42 by Alexx Saenz MD) Abnormal finding on imaging Allergies Anemia Asthma Degenerative arthritis of knee, bilateral Elevated creatine kinase level Elevated liver enzymes Endometriosis Gastric ulcer Hepatomegaly Migraines Muscle weakness Myopathic disease Pancreatic cyst Ruptured Bakers cyst right knee May 2022 RUQ pain Seasonal allergies Surgical History Surgical History History of arthroscopy of right knee February 13, 2022 History of cholecystectomy History of partial hysterectomy Family History Family History Mother Family history of lung cancer Other Hypertension Social History Social History Smoking status: Never smoker Alcohol intake: never Substance use: never Substance use type: does not use Living arrangements: with family Occupation/Education: occupation 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 care 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: No Meds Home Medications and Allergies Home Medications Medication Instructions Recorded Confirmed Type albuterol 90 mcg/actuation aerosol 90 mcg inhalation BID 09/15/22 11/07/22 History inhaler omeprazole 40 mg capsule,delayed 40 mg PO BID 10/11/22 11/07/22 History release Allergies Allergy/AdvReac Type Severity Reaction Status Date / Time Penicillins Allergy Unknown Anaphylaxis Verified 11/08/22 07:37 Vital Signs Vital Signs - 24 hr 11/08/22 07:40 Temperature 97.9 F Pulse Rate 71 Respiratory Rate 18 Blood Pressure 121/70 Pulse Oximetry 100 Oxygen Delivery Room Air Exam Const: General: comfortable and no acute distress HENMT: Face/Nose/Sinus: Normal nares present Eyes: General: appearance normal, both eyes and all related structures Neck: Neck: no JVD Resp: Auscultation: clear to auscultation bilaterally Cardio: Rate: regular rate Rhythm: regular rhythm GI: Inspection: non-distended GI Palp: Yes Soft to palpation Skin: General skin exam: normal color Neuro: General: gait normal Speech: normal speech Extrem: General: normal to inspection Psych: Mental Status: mental status grossly normal Assessment and Plan Assessment and plan (1) Gastric ulcer: Code(s): K25.9 - Gastric ulcer, unspecified as acute or chronic, without hemorrhage or perforation Status: Acute Assessment and Plan: egd with bx already on ppi
[2022-11-08 08:38] VITALS: BP 113/69; PULSE 78; RESP 14; O2SAT 100
[2022-11-08 08:48] VITALS: BP 117/77; PULSE 69; RESP 13; O2SAT 100
[2022-11-08 08:58] VITALS: BP 116/67; PULSE 67; RESP 14; O2SAT 100
== END 2022-11-08 09:04 | disposition home or self-care (01) ==
PROVIDERS: PCP Family Medicine; Visit Provider Internal Medicine Gastroenterology
PROC: 0DJ08ZZ Inspection of Upper Intestinal Tract, Via Natural or Artificial Opening Endoscopic (ICD-10-PCS; CPT 43235; principal; 2022-11-08 08:30)
DX: K25.9 Gastric ulcer, unspecified as acute or chronic, without hemorrhage or perforation (principal); J45.909 Unspecified asthma, uncomplicated; Z79.51 Long term (current) use of inhaled steroids
CPT/HCPCS: 43239; 88305; J2405; J2704; J7120

== ENCOUNTER 2023-08-29 17:07 | Emergency (ER) | payer SELFPAY ==
[2023-08-29 17:13] VITALS: BP 132/72; PULSE 72; RESP 18; TEMP 36.8; O2SAT 100
--- NOTE | 2023-08-29 17:39 | ED.GENADULT ---
HPI - General Adult General Chief complaint: Upper Respiratory Infection Stated complaint: chest tight/can't talk Source: patient, RN notes reviewed and old records reviewed Mode of arrival: ambulatory Limitations: no limitations History of Present Illness HPI narrative: 53-year-old female presents with complaint of cough, congestion, bilateral ear pain, sore throat, myalgia, fever, chills this started approximately 10 days ago and got worse 2 days ago. Patient taking [id number] medications with no relief. Patient denies chest pain, weakness, dizziness, shortness of breath MD complaint: cough, congestion Onset (ago): day(s) (10) Related Data Allergies Allergy/AdvReac Type Severity Reaction Status Date / Time Penicillins Allergy Unknown Anaphylaxis Verified 08/29/23 17:09 Review of Systems Constitutional: Constitutional: Reports no additional constitutional complaints, Reports body ache(s), Reports chills, Denies fatigue, Reports fever(s) and Reports headache(s) Eyes: Eyes: Reports no additional eye complaints and Denies blurry vision ENT: Reports system reviewed and no additional complaints, except as documented, Denies vertigo, Denies dizziness, Denies ear discharge, Reports otalgia, Denies facial pain, Reports headache(s), Reports nasal congestion, Reports nasal discharge, Reports sinus pain, Reports sinus pressure and Reports sore throat Cardiovascular: Cardiovascular: Reports no additional cardiovascular complaints, Denies chest pain, Denies chest pain at rest, Denies rapid heart rate and Denies dyspnea Respiratory: Respiratory: Reports no additional respiratory complaints, Reports chest congestion, Reports cough, Denies pain on inspiration, Denies pain with cough and Denies dyspnea Gastrointestinal: Gastrointestinal: Denies abdominal pain, Denies diarrhea, Denies nausea and Denies vomiting Integumentary/Breasts: Skin/Breast: Denies rash Neurologic: Reports system reviewed and no additional complaints, except as documented, Denies vertigo, Denies dizziness and Denies headache(s) Endocrine: Endocrine: Denies fatigue PMFSH Past Medical History Medical History Abnormal finding on imaging Allergies Anemia Asthma Degenerative arthritis of knee, bilateral Elevated creatine kinase level Elevated liver enzymes Endometriosis Gastric ulcer Hepatomegaly Migraines Muscle weakness Myopathic disease Pancreatic cyst Positive JIM (antinuclear antibody) Ruptured Bakers cyst right knee May 2022 RUQ pain Seasonal allergies Surgical History Surgical History History of arthroscopy of right knee February 13, 2022 History of cholecystectomy History of partial hysterectomy Family History Family History Mother Family history of lung cancer Other Hypertension Social History Social History Smoking status: Never smoker Alcohol intake: never Substance use: never Substance use type: does not use Living arrangements: with family Occupation/Education: occupation 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 There is no relevant family history pertinent to the patient complaint. Exam Const: General: cooperative, no acute distress, ill appearing acutely and well nourished Nutritional Appearance: well nourished Orientation/consciousness: patient oriented x3 Limitations: no limitations HENMT: Head: normal to inspection and normocephalic Ears: external ears normal, mastoids normal, Abnormal EAC present and TM abnormal wth effusion Face/Nose/Sinus: normal facial exam Face and sinus: normal facial exam Mo
== END 2023-08-29 17:48 | disposition home or self-care (01) ==
PROVIDERS: Emergency Provider Registered Nurse; PCP Family Medicine
DX: J40 Bronchitis, not specified as acute or chronic (principal); J01.90 Acute sinusitis, unspecified; H65.03 Acute serous otitis media, bilateral; J45.909 Unspecified asthma, uncomplicated; N80.9 Endometriosis, unspecified; Z90.711 Acquired absence of uterus with remaining cervical stump
CPT/HCPCS: 99213; G0463

== ENCOUNTER 2024-09-27 09:52 | Emergency (ER) | payer OTHER, SELFPAY ==
--- OUTSIDE RECORDS SUMMARY | 2024-09-27 10:06 | XMS_ITS | Encounter Summary ---
Author Organization [facility] Address [address] [place] [address] Care Team Providers Care Secondary Market Manager Name Role Phone Unavailable Primary Care Provider Unavailabl e Encounter Details Date Type Department Care Team (Late st Contact Info) Description 09/24/2024 External Device Data [facility] ABSTRACTION Provider, Abstract NO ADDRESS ON FILE Social History Tobacco Use Types Packs/Day Years Used Date Smoking Tobacco: Never Smokeless Tobacco: Never Alcohol Use Standard Drinks/Week Comments Yes 2 (1 standard drink = 0.6 oz pur e alcohol) Comments No Sex and Gender Information Value Date Recorded Sex Assigned at Not on file Legal Sex Female 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
--- OUTSIDE RECORDS SUMMARY | 2024-09-27 10:06 | XMS_ITS | Clinical Summary ---
Author Organization [facility] Medical Office Building [address] Address [address] [place] [address] Care Team Providers Care Underground Production Foreperson Name Role Phone Tyrone Teresa MD Primary Care Provider Ras Hancock MD Unavailable [phone] Allergies Active Allergy Reactions Criticality Noted Date Comments Penicillins Medications albuterol HFA (PROVENTIL HFA,VENTOLIN HFA) 90 mcg/actuation inhaler Inhale 2 puffs as needed for wheezing. Active butalbital-acet aminophen-caffe ine (FIORICET, ESGIC) 50-325-40 mg per tablet Take 1 tablet by mouth every 4 (four) hours as needed for headaches. 30 tablet 12/24/2017 Active lansoprazole (PREVACID) 30 mg capsule TAKE 1 CAPSULE BY MOUTH DAILY 30 capsule 11 10/18/2020 Active celecoxib (CeleBREX) 200 mg capsule daily 05/17/2022 Active Active Problems Problem Noted Date Diagnosed Date Migraine 11/22/2015 Overview (12/08/2016): Migraines Asthma 11/19/2014 Overview (12/08/2016): Asthma Surgical History Surgery Date Site/Laterality Comments OTHER SURGICAL HISTORY 1991 : 5 hr labor OTHER SURGICAL HISTORY 1998 : 6 hr labor OTHER SURGICAL HISTORY 2003 : 6 hr labor TOTAL ABDOMINAL HYSTERECTOMY SANDEEP AUGMENTATION MAMMOPLASTY Breast Augmentation CHOLECYSTECTOMY Cholecystectomy OTHER SURGICAL HISTORY Active Bleeding Ulcers x 2 Medical History Medical History Date Comments Hx Other Medical ; Outc ome: 40W0D week 7lb(s) 6 oz Female Hx Other Medical ; Outc ome: 40W0D week 7lb(s) 2 oz Female Hx Other Medical ; Outc ome: 40W0D week 5lb(s) 1 oz Male Asthma Asthma Hx Other Medical Gall Bladder Abnormal Pap smear of cervix PONV (postoperative nausea and vomiting) Anemia Chronic diarrhea Migraines Family History Medical History Relation Name Comments Breast cancer Mother Cancer, breast ; Lung cancer Mother Cancer, lung; C ause of : Cancer, lung Osteoporosis Mother Osteoporosis; Diabetes Other 1 Diabetes mellit us; Diabetes Other 2 Grandmother Diabetes mellit us; Relation Name Status Comments Mother Other 1 Other 2 Grandmother Social History Tobacco Use Types Packs/Day Years Used Date Smoking Tobacco: Never Smokeless Tobacco: Never Tobacco Cessation:Counseling Given: Not Answered Alcohol Use Standard Drinks/Week Comments No 0 (1 standard drink = 0.6 oz pur e alcohol) AUDIT-C Answer Date Recorded Q1: How often do you have a drink containing alc ohol? 2-3 times a week 06/19/2022 Q2: How many drinks containi ng alcohol do you have on a typical day when you are drinking? 1 or 2 06/19/2022 Q3: How often do you have si x or more drinks on one occasion? 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 Gender Identity Not on file Sexual Orientation Not on file Obstetrics History Para Term AB IAB SAB Ectopic Multiple Livin g Live Births 3 3 3 3 3 Date Outcome GA Total Labor Labor/2nd/3rd Weight Sex Type Anes PTL Nina A1 A5 Name Clin 2 Term 40w 0d 3.345 kg (7 lb 6 oz) F Vag-S pont Living 9 Term 40w 0d 3.232 kg (7 lb 2 oz) F Vag-S pont Living 4 Term 40w 0d 2.296 kg (5 lb 1 oz) M Vag-S pont Living Last Filed Vital Signs Vital Sign Reading Time Taken Comments Blood Pressure 98/65 06/19/2022 11:50 AM CDT Pulse 63 06/19/2022 11:50 AM CDT Temperature 36.5 ??C (97.7 ??F) 06/19/2022 9:48 AM CD T Respiratory Rate 10 06/19/2022 11:50 AM CDT Oxygen Saturation 99% 06/19/2022 11:50 AM CDT Inhaled Oxygen Concentration - - Weight 70.8 kg (156 lb) 06/19/2022 9:48 AM CDT Height 170.2 cm (5' 7 ) 06/19/2022 9:48 AM CDT Body Mass Index 24.43 06/19/2022 9:48 AM CDT Plan of Treatment Health Maintenance Due Date Last Done Comments Colon Cancer Screening-Colonoscopy 1972 Hepatitis C Screening 1972 Pneumococcal vaccine <65 (1 of 2 - PCV) 01/23/1978 DTaP/Tdap/Td Vaccine (1 - Tdap) 01/23/1983 Hepatitis B Screening 01/23/1990 Breast Cancer Screening-Mammogram 04/11/2018 04/11/2017, 04/11/2017, 12/03/2015 Depression Screening 08/06/2021 08/06/2020, 07/28/2019, 12/21/2017 Regular Well Visit/Exam 18-64 08/06/2021 08/06/2020, 07/28/2019 Zoster Vaccine (1 of 2) 01/23/2022 Influenza Vaccine (#1) 2024 08/04/2015 Cervical Cancer Screening Discontinued 12/21/2017, Procedures Procedure Name Priority Date/Time Associated Diagnosis Comments THINPREP INFANT LEAD TEACHER PAP (IMAGE GUIDED) LIQUID-BASED PREP Routine 12/21/2017 10:10 AM CDT Well woman exam SCREENING MAMMOGRAM BILATERAL W KIRAN W IMPLANTS Routine 04/11/2017 4:43 PM CDT from Last 3 Months or Most Recently Relevant to Health Maintenance Results * ThinPrep Gynecologic Pap Test (Image-guided), Liquid-based Preparation (12/21/2017 10:10 AM CDT) Report status [facility] [place] Comment:Result canceled by t he ancillary CLINICAL INFORMATION: [facility] [place] Comment:Information not prov ided LMP [facility] [place] Comment:INFORMATION NOT PROV IDED Previous Pap [facility] [place] Comment:INFORMATION NOT PROV IDED Prev. Bx [facility] [place] Comment:INFORMATION NOT PROV IDED SOURCE: [facility] [place] Comment:Information not prov ided Pap, specimen adequacy [facility] [place] Comment: Satisfactory for evaluation. Endocervical/transformation zone component present. Age and/or menstrual status not provided Pap, general categorization [facility] [place] Comment:Result canceled by t he ancillary HPV interp [facility] [place] Comment:Negative for intraep ithelial lesion or malignancy. Infection: [facility]ELED [facility] [place] Comment:Result canceled by t he ancillary COMMENTS [facility] - Comment: This Pap test has been evaluated with computer assisted technology. Paper Machine Backtender [facility] - Comment: MEF, CT(ASCP) CT screening location: [place] [address] [address] [place] [address] Review territory outside sales manager [facility]CELED [facility] - Comment:Result canceled by t he ancillary Pathologist [facility] - Comment:Result canceled by t he ancillary Comment [facility] [place] Comment: EXPLANATORY NOTE: The Pap is a screening test for cervical cancer. It is not a diagnostic test and is subject to false negative and false positive results. It is most reliable when a satisfactory sample, regularly obtained, is submitted with relevant clinical findings and history, and when the Pap result is evaluated along with historic and current clinical information. 12/21/2017 10:1 0 AM CDT 12/24/2017 6:16 AM CDT Narrative Resulting Agency Comment Performing Organization Information: ?Site ID: ?[facility] ?Address: [facility] [address] [place] [address] ?Director: Ernestine Fournier us Keesha Ochoa SEPTIC PUMP TRUCK DRIVER LAB PATHOLOGY ORDERABLES Final Result [facility] [place] * Screening Mammogram Bilateral W Kiran W Implants (04/11/2017 4:43 PM CDT) Anatomical Region Laterality Modality Breast Bilateral Mammography 04/11/2017 4:43 PM CDT Narrative 04/11/2017 4:43 PM CDT SCRN IMPLANTS W KIRAN BI ??Acc#: ??[id number] DATE OF EXAM: ??Apr ?? 2017 ?? SCRN IMPLANTS W KIRAN BI HISTORY: Screening.. Family history of breast cancer (mother, premenopausal). ??Right lateral breast implants. TECHNIQUE: Craniocaudal and mediolateral oblique views with and without implant displacement technique of each breast were obtained with bilateral breast tomosynthesis. COMPARISON: 12/03/2015 FINDINGS: The breasts are heterogeneously dense. No dominant mass, skin thickening, nipple retraction or suspicious cluster of microcalcifications is seen. ??Visualized portions of the implant margins appear intact Digital technology was employed plus computer aided detection software (R2) was utilized in interpretation of these images. ??This facility utilizes a reminder system to notify patient's of yearly mammograms. IMPRESSION: 1. ??NO FINDINGS SUSPICIOUS FOR MALIGNANCY. 2. ??ANNUAL FOLLOW-UP RECOMMENDED. BI-RADS 1 Electronically signed by: Sterling Puri Jr., M.D. Interpreting Physician: ??DR STERLING PURI M.D. ??Read on: ??Apr ??2016 11:44A Transcribed by: ??PSC ??On: Apr ??2016 11:42A Approved Electronically by: ??JAXSON Monroe, DR LIM ??on: ??Apr ??2016 11:42A Ordering DR: REFERRAL SELF Attending DRJose A OCHOA Attending: ??KEESHA OCHOA NP Requesting: ??SELF, REFERRAL Requesting Fax: ??-- Attending Fax: ??[phone] Attending ID: ??[id number] Requesting ID: ??[id number] Report To 1 ID: ??[id number] Report To 1 Name: ??KEESHA OCHOA NP Report To 1 FAX: ??[phone] NextGen Order #: ?? Procedure Note Miscellaneous, Not In File / Provider, MD Wendy - 04/11/2017 SCRN IMPLANTS W KIRAN BI Acc#: [id number] DATE OF EXAM: Apr 11 2017 SCRN IMPLANTS W KIRAN BI HISTORY: Screening.. Family history of breast cancer (mother, premenopausal). Right lateral breast implants. TECHNIQUE: Craniocaudal and mediolateral oblique views with and without implant displacement technique of each breast were obtained with bilateral breast tomosynthesis. COMPARISON: 12/03/2015 FINDINGS: The breasts are heterogeneously dense. No dominant mass, skin thickening, nipple retraction or suspicious cluster of microcalcifications is seen. Visualized portions of the implant margins appear intact Digital technology was employed plus computer aided detection software (R2) was utilized in interpretation of these images. This facility utilizes a reminder system to notify patient's of yearly mammograms. IMPRESSION: 1. NO FINDINGS SUSPICIOUS FOR MALIGNANCY. 2. ANNUAL FOLLOW-UP RECOMMENDED. BI-RADS 1 Electronically signed by: Sterling Puri Jr., M.D. Interpreting Physician: DR STERLING PURI M.D. Read on: Apr 11 2017 11:44A Transcribed by: PSC On: Apr 11 2017 11:42A Approved Electronically by: JAXSON Monroe, DR LIM on: Apr 11 2017 11:42A Ordering DR: REFERRAL SELF Attending DR: KEESHA OCHOA Attending: KEESHA OCHOA NP Requesting: SELF, REFERRAL Requesting Fax: -- Attending Attending ID: [id number] Requesting ID: [id number] Report To 1 ID: [id number] Report To 1 Name: KEESHA OCHOA NP Report To 1 FAX: [phone] NextGen Order #: us Not In File Miscellaneous IMG MAMMO PROCEDURES F inal Result from Last 3 Months or Most Recently Relevant to Health Maintenance Insurance [employer] O[employer] Advance Directives For more information, please contact: [phone] * Full Code (Latest Code Status on File) Date Activated Date Inactivated Comments 06/19/2022 9:56 AM 06/19/2022 4:24 PM Care Teams Underground Production Foreperson Relationship Specialty Start Date End Date Tyrone Teresa MD [address] [place] [address] PCP - General 05/25/17 Ras Hancock MD [address] [place] [address] Consulting Physician Rheumatology 03/23/23
--- OUTSIDE RECORDS SUMMARY | 2024-09-27 10:06 | XMS_ITS | Encounter Summary ---
Author Organization [facility] Address [address] [place] [address] Care Team Providers Care Education Dean Name Role Phone Tyrone Teresa MD Primary Care Provider [phone] Encounter Details Date Type Department Care Team (Late st Contact Info) Description 01/17/2024 Lab Requisition [facility] DermPath Lab [address] [facility] [place] [address] Ping Vital MD [address] [facility] [address] [place] [address] Social History Tobacco Use Types Packs/Day Years Used Date Smoking Tobacco: Never Smokeless Tobacco: Never Sex and Gender Information Value Date Recorded Sex Assigned at Not on file Gender Identity Not on file Sexual Orientation Not on file documented as of this encounter Plan of Treatment Not on file documented as of this encounter Procedures Procedure Name Priority Date/Time Associated Diagnosis Comments DERMATOPATHOLOGY Routine 01/17/2024 11:2 8 AM CDT documented in this encounter Results * DERMATOPATHOLOGY (01/17/2024 11:28 AM CDT) Case Report Dermatopathology Report ? Case: [id number] ? Authorizing Provider: ??Ping Vital MD ?Collected: ? 01/17/2024 11:28 AM ? Ordering Location: ? [facility] - ??Received: ?01/18/2024 07:37 AM ? DermPath Lab ? Pathologist: ? Melissa Muniz MD ? Specimens: ?? A) - Skin, right upper lip ? B) - Skin, left nose ? 4 4:36 PM CDT DERMATOPATHOLOGY LABORATORY Final Diagnosis Specimen A. SKIN, right upper lip: FRAGMENTS OF EPIDERMIS (D23.9) (see microscopic description) Specimen B. SKIN, left nose: DERMAL FIBROSIS (L90.5) (see microscopic description and comment) 4 4:36 PM CDT DERMATOPATHOLOGY LABORATORY Clinical History A-B: pink papule; favor FP r/o NMSC. 4 4:36 PM T DERMATOPATHOLOGY LABORATORY Gross Description Specimen A: Received is one formalin filled container labeled with the patient's name and designated right upper lip. The specimen consists of a shave biopsy measuring 1x1x1 mm. Jar 0. Specimen B: Received is one formalin filled container labeled with the patient's name and designated left nose. The specimen consists of a shave biopsy measuring 2x2x1 mm. Jar 0. 4 4:36 PM T DERMATOPATHOLOGY LABORATORY Microscopic Description Specimen A. SKIN, right upper lip: There are fragments of squamous epithelium without evidence of epithelial dysplasia or malignancy. There is minimal dermis present for evaluation. Additional deeper sections were obtained and reviewed. Specimen B. SKIN, left nose: The epidermis is unremarkable. There is focal dermal fibrosis. Additional deeper sections were obtained and reviewed. COMMENT: These findings could be seen in, but are not diagnostic of, a fibrous papule. Given the superficial nature of the biopsy specimen, a deeper dermal process cannot be excluded. 4 4:36 PM T DERMATOPATHOLOGY LABORATORY Disclaimer An external and internal positive and negative controls are appropriate for the histochemical, immunohistochemical and immunofluorescence stain(s) in this case (if any), except where stated explicitly. The performance characteristics of the stain(s) cited in this report were developed and its performance characteristic determined by the Dermatopathology Laboratory at [facility], directed by Dr. Jordan Cruz. These tests need not be, and therefore are not, approved by the [place] Food and Drug Administration. The tests are used for clinical purposes. Billing Codes Specimen Charges Stain Charges 50796 92482 1 1 4 4:36 PM CDT DERMATOPATHOLOGY LABORATORY Embedded Images 4 4:36 PM CDT DERMATOPATHOLOGY LABORATORY Pathology/Cytology TISSUE SPECIMEN FROM SKIN / Unknown 01/17/2024 11:28 AM CDT 01/18/2024 7:37 AM CDT Miscellaneous samples (specimen) TISSUE SPECIMEN FROM SKIN / Unknown 01/17/2024 11:28 AM CDT 01/18/2024 7:37 AM CDT Ping Vital MD LAB - PATHOLOGY/CYTO LOGY ORDERABLES DERMATOPATHOLOGY LABORATORY [facility] - Department of Dermatology [facility] Specialized Medicine [address] [place] [address], [address] [phone] documented in this encounter Visit Diagnoses Not on filedocumented in this encounter Care Teams Education Dean Relationship Specialty Start Date End Date Tyrone Teresa MD [address] [place] [address] PCP - General 11/21/22 documented as of this encounter
--- OUTSIDE RECORDS SUMMARY | 2024-09-27 10:06 | XMS_ITS | Referral Summary ---
Author Organization [facility] [employer] Address [address] [facility] [place] [address] Care Team Providers Care Public Works Manager Name Role Phone Tyrone Teresa MD Primary Care Provider Source Comments [facility],non-owned Affiliates and Associated Physician Practices is amultiple site organization consisting of ambulatory clinics and hospital sitesin [place], [place], [place] and [place]. This disclosure is being madepursuant to the Care Everywhere program and may not contain all information available regarding this patient. Last updated 18.[facility] [employer] Allergies Active Allergy Reactions Criticality Noted Date Comments Penicillins Rash Medium 07/19/2017 Medications * Be aware that medications may not be up to date on this document. Alwaysverify current medications with the patient. Medication Sig Dispensed Refills Start Date End Date Status Albuterol Sulfate (PROAIR HFA IN) Active methylPREDNISolone (MEDROL DOSEPAK) 4 MG tablet Take by mouth as directed 1 Each 07/19/2017 Active predniSONE (DELTASONE) 20 MG tabletIndications:Pe rsistent asthma with acute exacerbation, unspecified asthma severity (HCC) Take 2 tabs daily with food for 5 days. 10 tablet 02/01/2018 Active promethazine-DM syrupIndications:Col d Symptoms,Cough,Nasal Congestion Take 5 mL by mouth every 4 hours as needed for Cough Reasons: Cold Symptoms, Cough, Stuffy Nose 118 mL 02/01/2018 Active albuterol HFA (PROAIR HFA) 108 (90 BASE) MCG/ACT inhalerIndications:L ower respiratory tract infection,Persistent asthma with acute exacerbation, unspecified asthma severity (HCC) Inhale 2 puffs by mouth every 4 hours as needed for Shortness of Breath, Wheezing or Cough 1 Inhaler 02/01/2018 Active benzonatate (TESSALON) 100 MG capsuleIndications:L ower respiratory tract infection Take 1 capsule by mouth 3 times daily as needed for Cough 30 capsule 02/01/2018 Active Social History Tobacco Use Types Packs/Day Years Used Date Smoking Tobacco: Never Smokeless Tobacco: Never Sex and Gender Information Value Date Recorded Sex Assigned at Not on file Gender Identity Not on file Sexual Orientation Not on file Last Filed Vital Signs Vital Sign Reading Time Taken Comments Blood Pressure 120/76 07/27/2018 10:02 AM BENDER HAND Pulse 71 07/27/2018 10:02 AM BENDER HAND Temperature 36.5 ??C (97.7 ??F) 07/27/2018 10:[address] Respiratory Rate - - Oxygen Saturation 99% 07/27/2018 10:02 AM BENDER HAND Inhaled Oxygen Concentration - - Weight 68 kg (150 lb) 07/27/2018 10:02 AM BENDER HAND Height 170.2 cm (5' 7 ) 07/27/2018 10:02 AM BENDER HAND Body Mass Index 23.49 07/27/2018 10:02 AM BENDER HAND Plan of Treatment Not on file Care Teams Public Works Manager Relationship Specialty Start Date End Date Tyrone Teresa MD [address] [place] [address] PCP - General 11/21/22
--- OUTSIDE RECORDS SUMMARY | 2024-09-27 10:06 | XMS_ITS | Referral Summary ---
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 Gender Identity Not on file Sexual Orientation [...] 06/19/2022 9:48 AM CDT Plan of Treatment Not on file Procedures Procedure Name Priority Date/Time Associated Diagnosis Comments THINPREP WIND TURBINE CONTROLS ENGINEER PAP (IMAGE GUIDED) LIQUID-BASED PREP Routine 12/21/2017 10:10 AM CDT Well woman exam SCREENING MAMMOGRAM BILATERAL W KIRAN W IMPLANTS Routine 04/11/2017 4:43 PM CDT from Last 3 Months or Most Recently Relevant to Health Maintenance Results * ThinPrep Gynecologic Pap Test (Image-guided), Liquid-based Preparation (12/21/2017 10:10 AM CDT) Report status [facility] [place] Comment:Result canceled by rebecca mtz ancillary CLINICAL INFORMATION: [facility] [place] Comment:Information not prov ided LMP [facility] [place] Comment:INFORMATION NOT PROV IDED Previous Pap [facility] [place] Comment:INFORMATION NOT PROV IDED Prev. Bx [facility] [place] Comment:INFORMATION NOT PROV IDED SOURCE: [facility] - Comment:Information not prov ided Pap, specimen adequacy [facility] - Comment: Satisfactory for evaluation. Endocervical/transformation zone component present. Age and/or menstrual status not provided Pap, general categorization [facility] [place] Comment:Result canceled by t he ancillary HPV interp [facility] [place] Comment:Negative for intraep ithelial lesion or malignancy. Infection: [facility] [place] Comment:Result canceled by t he ancillary COMMENTS [facility] - Comment: This Pap test has been evaluated with computer assisted technology. Merchandise Collector [facility] - Comment: MEF, CT(ASCP) CT screening location: [place] [address] [address] [place] [address] Review corporate relations director CANCELED [facility] - Comment:Result canceled by t he ancillary Pathologist [facility] [place] Comment:Result canceled by t he ancillary Comment [facility] - Comment: EXPLANATORY NOTE: The Pap is a [...] Comment Performing Organization Information: ?Site ID: ?Name: [facility] ?Address: Counts include [address] at the [facility] [address] [place] [address] ?Director: Ernestine Fournier us Keesha Ochoa SECURITY CLERK LAB PATHOLOGY ORDERABLES Final Result [facility] [place] * Screening Mammogram Bilateral W Kiran W Implants (04/11/2017 4:43 PM CDT) Anatomical Region Laterality Modality Breast Bilateral Mammography 04/11/2017 4:43 PM CDT Narrative 04/11/2017 4:43 PM CDT SCRN IMPLANTS W KIRAN BI ??Acc#: ??[id number] DATE OF EXAM: ??Apr ??2016 ?? SCRN IMPLANTS W KIRAN BI HISTORY: [...] ??2016 11:42A Ordering DR: REFERRAL SELF Attending DR: KEESHA OCHOA Attending: ??KEESHA OCHOA NP Requesting: ??SELF, REFERRAL Requesting Fax: ??-- Attending Fax: ??[phone] Attending ID: ??[id number] Requesting ID: ??[id number] Report To 1 ID: ??[id number] Report To 1 Name: ??KEESHA OCHOA NP Report To 1 FAX: ??[phone] NextGen Order #: ?? Procedure Note Miscellaneous, Not In File / Provider, MD Wendy - 04/11/2017 SCRN IMPLANTS W KIRAN BI Acc#: [id number] DATE OF EXAM: Apr 11 2017 SCRN [...] on: Apr 11 2017 11:44A Transcribed by: [facility] On: Apr 11 2017 11:42A Approved Electronically by: JAXSON Monroe, DR LIM on: Apr 11 2017 11:42A Ordering DR: REFERRAL SELF Attending DR: KEESHA OCHOA Attending: KEESHA OCHOA NP Requesting: SELF, REFERRAL Requesting Fax: -- Attending Attending ID: [id number] Requesting ID: [id number] Report To 1 ID: [id number] Report To 1 Name: KEESHA OCHOA NP Report To 1 FAX: [phone] NextGen Order #: us Not In File Miscellaneous IMG MAMMO PROCEDURES F inal Result from Last 3 Months or Most Recently Relevant to Health Maintenance Insurance [employer] O[employer] Advance Directives For more information, please contact: [phone] * Full Code (Latest Code Status on File) Date Activated Date Inactivated Comments 06/19/2022 9:56 AM 06/19/2022 4:24 PM Care Teams Lace Pinner Relationship Specialty Start Date End Date Tyrone Teresa MD [address] [place] [address] PCP - General 05/25/17 Ras Hancock MD [address] [place] [address] Consulting Physician Rheumatology 03/23/23
--- OUTSIDE RECORDS SUMMARY | 2024-09-27 10:06 | XMS_ITS | Clinical Summary ---
Author Organization [facility] Address [address] [place] [address] Care Team Providers Care Breeder Service Technician Name Role Phone Tyrone Teresa MD Primary Care Provider [phone] Source Comments [facility],non-owned Affiliates and Associated Physician Practices is amultiple site organization consisting of ambulatory clinics and hospital sitesin [place], [place], [place] and [place]. This disclosure is being madepursuant to the Care Everywhere program and may not contain all information available regarding this patient. Last updated 18.[facility] Allergies Active Allergy Reactions Criticality Noted Date [...] Inhaler 02/01/2018 Active benzonatate (TESSALON) 100 MG capsuleIndications:Francisca conteh respiratory tract infection Take 1 capsule by [...] Comments Blood Pressure 120/76 07/27/2018 10:02 AM MANAGER DISASTER RECOVERY Pulse 71 07/27/2018 10:02 AM MANAGER DISASTER RECOVERY Temperature 36.5 ??C (97.7 ??F) 07/27/2018 10:[address] Respiratory Rate - - Oxygen Saturation 99% 07/27/2018 10:02 AM MANAGER DISASTER RECOVERY Inhaled Oxygen Concentration - - Weight 68 kg (150 lb) 07/27/2018 10:02 AM MANAGER DISASTER RECOVERY Height 170.2 cm (5' 7 ) 07/27/2018 10:02 AM MANAGER DISASTER RECOVERY Body Mass Index 23.49 07/27/2018 10:02 AM MANAGER DISASTER RECOVERY Plan of Treatment Health Maintenance Due Date Last Done Comments COLOGUARD (AGES 45-75) - COL ON CA SCREENING 1972 COLON MONITORING 1972 COLONOSCOPY - COLON CA SCREENING 1972 CT COLONOGRAPHY - COLON CA SCREENING 1972 Colorectal Cancer Screening 1972 FIT - COLON CA SCREENING 1972 FLEX SIG - COLON CA SCREENING 1972 LIPID TESTING 1972 MAMMOGRAM 1972 PAP SMEAR 1972 HIV SCREENING 01/23/1987 HEPATITIS C SCREENING 01/19/1990 DTAP/TDAP/TD VACCINES (1 - Tdap) 01/23/1991 HEPATITIS B VACCINE (1 of 3 - 19+ 3-dose series) 01/23/1991 PNEUMOCOCCAL VACCINE 50+ (1 of 1 - PCV) 01/23/2022 ZOSTER VACCINE (1 of 2) 01/23/2022 COVID-19 VACCINE (1 - 2023-2 5 season) 2024 INFLUENZA VACCINE (#1) 2024 DEPRESSION SCREENING 09/03/2024 HIB VACCINE Aged Out No longer eligi ble based on patient's age to complete this topic HPV VACCINE Aged Out No longer eligi ble based on patient's age to complete this topic MENINGOCOCCAL (Group B) VACCINE Aged Out No longer eligible based on patient's age to complete this topic MENINGOCOCCAL VACCINE Aged Out No zunilda roger eligible based on patient's age to complete this topic PNEUMOCOCCAL VACCINE Aged Out No long er eligible based on patient's age to complete this topic Care Teams Breeder Service Technician Relationship Specialty Start Date End Date Tyrone Teresa MD [address] [place] [address] PCP - General 11/21/22
--- OUTSIDE RECORDS SUMMARY | 2024-09-27 10:06 | XMS_ITS | Patient Health Summary ---
Author Organization [facility] Address [address] [place] [address] Care Team Providers Care Resume Specialist Name Role Phone Tyrone Teresa MD Primary Care Provider [phone] Note from [facility],non-owned Affiliates and Associated Physician Practices is amultiple site organization consisting of ambulatory clinics and hospital sitesin [place], [place], [place] and [place]. This disclosure is being madepursuant to the Care Everywhere program and may not contain all information available regarding this patient. Last updated 18.[facility] Allergies * Penicillins(Rash) -Medium Criticality Medications * Be aware that medications may not be up to date on this document. Alwaysverify current medications with the patient. * Albuterol Sulfate (PROAIR HFA IN) * methylPREDNISolone (MEDROL DOSEPAK) 4 MG tablet(Started 07/19/2017) Take by mouth as directed * predniSONE (DELTASONE) 20 MG tablet(Started 02/01/2018) Take 2 tabs daily with food for 5 days. * promethazine-DM syrup(Started 02/01/2018) Take 5 mL by mouth every 4 hours as needed for Cough Reasons: Cold Symptoms, Cough, Stuffy Nose * albuterol HFA (PROAIR HFA) 108 (90 BASE) MCG/ACT inhaler(Started 02/01/2018) Inhale 2 puffs by mouth every 4 hours as needed for Shortness of Breath, Wheezing or Cough * benzonatate (TESSALON) 100 MG capsule(Started 02/01/2018) Take 1 capsule by mouth 3 times daily as needed for Cough Social History Tobacco Use Types Packs/Day Years Used Date Smoking Tobacco: Never Smokeless Tobacco: Never Sex and Gender Information Value Date Recorded Sex Assigned at Not on file Gender Identity Not on file Sexual Orientation Not on file Last Filed Vital Signs Vital Sign Reading Time Taken Comments Blood Pressure 120/76 07/27/2018 10:02 AM COUPON AND BOND COLLECTION CLERK Pulse 71 07/27/2018 10:02 AM COUPON AND BOND COLLECTION CLERK Temperature 36.5 ??C (97.7 ??F) 07/27/2018 10:[address] Respiratory Rate - - Oxygen Saturation 99% 07/27/2018 10:02 AM COUPON AND BOND COLLECTION CLERK Inhaled Oxygen Concentration - - Weight 68 kg (150 lb) 07/27/2018 10:02 AM COUPON AND BOND COLLECTION CLERK Height 170.2 cm (5' 7 ) 07/27/2018 10:02 AM COUPON AND BOND COLLECTION CLERK Body Mass Index 23.49 07/27/2018 10:02 AM COUPON AND BOND COLLECTION CLERK Procedures * DERMATOPATHOLOGY(Performed 01/17/2024) * PULSE OXIMETRY - POINT OF CARE (AMB)(Performed 02/01/2018) Performed for Lower respiratory tract infection, Persistent asthma with acute exacerbation, unspecified asthma severity (HCC) * CULTURE URINE(Performed 04/16/2014) Results * DERMATOPATHOLOGY (01/17/2024 11:28 AM CDT) Case Report Dermatopathology Report ? Case: [id number] ? Authorizing Provider: ??Ping Vital MD ?Collected: ? 01/17/2024 11:28 AM ? Ordering Location: ? [facility] - ??Received: ?01/18/2024 07:37 AM [...] favor FP r/o NMSC. 4 4:36 PM CDT DERMATOPATHOLOGY LABORATORY Gross Description Specimen A: Received [...] 2x2x1 mm. Jar 0. 4 4:36 PM CDT DERMATOPATHOLOGY LABORATORY Microscopic Description Specimen A. SKIN, [...] process cannot be excluded. 4 4:36 PM CDT DERMATOPATHOLOGY LABORATORY Disclaimer An external and internal positive and negative controls are appropriate for the histochemical, immunohistochemical and immunofluorescence stain(s) in this case (if any), except where stated explicitly. The performance characteristics of the stain(s) cited in this report were developed and its performance characteristic determined by the Dermatopathology Laboratory at [facility], directed by Dr. Jordan Cruz. These tests need not be, and therefore are not, approved by the [place] Food and Drug Administration. The tests are used for clinical purposes. Billing Codes Specimen Charges Stain Charges 71013 60544 1 1 4 4:36 PM CDT DERMATOPATHOLOGY LABORATORY Embedded Images 4 4:36 PM CDT DERMATOPATHOLOGY LABORATORY Pathology/Cytology TISSUE SPECIMEN FROM SKIN / Unknown 01/17/2024 11:28 AM CDT 01/18/2024 7:37 AM CDT Miscellaneous samples (specimen) TISSUE SPECIMEN FROM SKIN / Unknown 01/17/2024 11:28 AM CDT 01/18/2024 7:37 AM CDT Ping Vital MD LAB - PATHOLOGY/CYTO LOGY ORDERABLES DERMATOPATHOLOGY LABORATORY [facility] - Department of Dermatology [facility] Medicine [address] [place] [address], [address] [phone] * PULSE OXIMETRY - POINT OF CARE (AMB) (02/01/2018) Oximetry POCT 99 0 - 100 % Comment:Room Air QC Verified Yes Other BLOOD SPECIMEN / Unknown 02/01/2018 Maggie Howard STEAM PLANT RECORDS CLERK-CEMENT TRUCK DRIVER LAB - POINT OF [place] RE ORDERABLES * (ABNORMAL) CULTURE URINE (04/16/2014 5:45 PM CDT) Culture Urine ESCHERICHIA COLI(A) [facility] Comment:Greater than 1,000,0 00 CFU/ML Escherichia Coli Urine specimen (specimen) URINE SPECIMEN OBTAINED BY CLEAN CATCH PROCEDURE / Unknown 04/16/2014 5:45 PM CDT 04/16/2014 9:42 PM CDT Narrative [facility] - 04/18/2014 10:47 AM CDT BraedenSpecemiliano#[id number] [place] Loc/Rm/Bed: EXPCARE B// CLN CATCH U Organism Antibiotic Method Susceptibility Escherichia coli Amikacin SUSCEPTIBILITY <=2: Sensitive Escherichia coli Ampicillin SUSCEPTIBILITY 8: Sensitive Escherichia coli Ampicillin-sulbactam SUSCEPTIBILITY 4: Sensitive Escherichia coli Cefazolin SUSCEPTIBILITY <=4: Sensitive Escherichia coli Cefepime SUSCEPTIBILITY <=1: Sensitive Escherichia coli Ceftazidime SUSCEPTIBILITY <=1: Sensitive Escherichia coli Ceftriaxone SUSCEPTIBILITY <=1: Sensitive Escherichia coli Gentamicin SUSCEPTIBILITY <=1: Sensitive Escherichia coli Imipenem SUSCEPTIBILITY <=0.25: Sensitive Escherichia coli Levofloxacin SUSCEPTIBILITY <=0.12: Sensitive Escherichia coli Nitrofurantoin SUSCEPTIBILITY 32: Sensitive Escherichia coli Piperacillin-tazobactam SUSCEPTIBILIT Y <=4: Sensitive Escherichia coli Tobramycin SUSCEPTIBILITY <=1: Sensitive Escherichia coli Trimethoprim-sulfamethoxazole SUSCEPT IBILITY <=20: Sensitive Escherichia coli Extended-Spectrum Beta-Lactamase SUSC EPTIBILITY Neg: - Historical Provider LAB - MICROBIOLOG Y ORDERABLES Performing Organization Address City/State/[facility] Co de Phone Number [facility] [address] [place] [address] Care Teams Resume Specialist Relationship Specialty Start Date End Date Tyrone Teresa MD [address] [place] [address] PCP - General 11/21/22
--- OUTSIDE RECORDS SUMMARY | 2024-09-27 10:06 | XMS_ITS | Clinical Summary ---
Author Organization 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 Gender Identity Not on file Sexual Orientation Not on file Plan of Treatment Health Maintenance Due Date Last Done Comments Hepatitis C Virus (HCV) Screening 1972 TdaP Immunization 1972 Hepatitis B Immunization (1 of 3 - 19+ 3-dose series) 01/23/1991 Pap Smear 01/23/1993 Cervical Cancer Screening (CCS) 01/23/2002 HPV/Cotest 01/23/2002 Colonoscopy 01/23/2017 Colorectal Cancer Screening 01/23/2017 Cologuard 01/23/2022 Immunochemical Fecal Occult Blood 01/23/2022 Mammogram 01/23/2022 Pneumococcal Immunization (5 0+ years) (1 of 1 - PCV) 01/23/2022 Zoster Immunization (1 of 2) 01/23/2022 Influenza Immunization (#1) 2024 08/04/2015 SARS-COV-2 Immunization (3 - 2023- season) 2024 05/31/2021, 05/10/2021 Respiratory Syncytial Virus (RSV) Immunization (Adult) (1 - 1-dose 75+ series) 01/23/2047 Meningococcal Immunization (ACWY) Aged Out No longer eligible b ased on patient's age to complete this topic Pneumococcal Immunization Combined Aged Out No longer eligible b ased on patient's age to complete this topic Rotavirus Immunization Aged Out No lo nger eligible based on patient's age to complete this topic Insurance [facility] Care Teams Cash Shortage Investigator Relationship Specialty Start Date End Date Provider, None [place] PCP - General 02/17/21
--- OUTSIDE RECORDS SUMMARY | 2024-09-27 10:06 | XMS_ITS | Clinical Summary ---
Author Organization [facility] [address] [place] [address] [place] [id number] Care Team Providers Care Art Model Name Role Phone Unavailable Primary Care Provider Unavailabl e Allergies Active Allergy Reactions Criticality Noted Date Comments Penicillins Rash Medium 07/19/2017 Medications albuterol sulfate HFA 90 mcg/actuation aerosol inhaler Take 2 Puffs by inhalation. Active celecoxib (CeleBREX) 200 mg capsule daily. 2 Active omeprazole (PriLOSEC) 40 mg Capsule, Delayed Release(E.C.) Take 40 mg by mouth daily. Active fezolinetant (Veozah) 45 mg TabletIndicatio ns:Vasomotor symptoms due to menopause,Hot flashes due to menopause,Night sweats Take 1 Tablet by mouth daily. 30 Tablet 11 4 Active hydrOXYzine HCL (ATARAX) 25 mg tabletIndicatio ns:Vasomotor symptoms due to menopause,Hot flashes due to menopause,Night sweats,Insomnia associated with menopause Take 1 Tablet (25 mg) by mouth daily with supper. 90 Tablet 3 4 Active Phentermine 37.5 mg CapsuleIndicati ons:Weight gain, abnormal Take 37.5 mg by mouth daily in the morning. Take 1 capsule before breakfast 90 Capsule 4 Active Active Problems No known active problems Encounters Date Type Department Care Team Description 09/24/2024 External Device Data [facility] ABSTRACTION Provider, Abstract 09/23/2024 External Device Data [facility] ABSTRACTION Provider, Abstract 09/16/2024 External Device Data [facility] ABSTRACTION Provider, Abstract from Last 3 Months Family History Medical History Relation Name Comments Breast Cancer Mother Schizophrenia Mother Relation Name Status Comments Mother Social History Tobacco Use Types Packs/Day Years Used Date Smoking Tobacco: Never Smokeless Tobacco: Never Alcohol Use Standard Drinks/Week Comments Yes 2 (1 standard drink = 0.6 oz pur e alcohol) Comments No Sex and Gender Information Value Date Recorded Sex Assigned at Not on file 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 Gender Identity Not on file Sexual Orientation Not on file Last Filed Vital Signs Vital Sign Reading Time Taken Comments Blood Pressure 112/74 10/11/2023 8:52 AM BROKE WORKER Pulse - - Temperature - - Respiratory Rate - - Oxygen Saturation - - Inhaled Oxygen Concentration - - Weight 75.7 kg (166 lb 12.8 oz) 10/11/2023 8:52 AM BROKE WORKER Height 167.6 cm (5' 6 ) 10/11/2023 8:52 AM BROKE WORKER Body Mass Index 26.92 10/11/2023 8:52 AM BROKE WORKER Plan of Treatment Health Maintenance Due Date Last Done Comments Pre-Diabetes and Diabetes Screening 1972 PNEUMOCOCCAL VACCINE 0-64 YE ARS (1 of 2 - PCV) 01/23/1978 DTAP/TDAP/TD VACCINES (1 - Tdap) 01/23/1991 HEPATITIS B VACCINES (1 of 3 - 19+ 3-dose series) 01/23/1991 CERVICAL CANCER SCREENING 01/23/2002 COLORECTAL SCREENING 01/23/2017 Colorectal Cancer Screening 01/23/2017 FIT-DNA Q 3 years 01/23/2017 FIT/FOBT Q 1 year 01/23/2017 Flex Sig/CT Colonography Q 5 years 01/23/2017 ZOSTER VACCINE (1 of 2) 01/23/2022 INFLUENZA VACCINE (#1) 2024 BREAST CANCER SCREENING 11/18/2024 11/19/19 24, 04/11/2017, 12/03/2015 Procedures Procedure Name Priority Date/Time Associated Diagnosis Comments MAMMO DIAG BILAT 3D GLENN W OR WO CAD Routine 11/19/2023 8:44 AM CDT Breast cancer screening by mammogram Breast implant status Mass overlapping multiple quadrants of left breast from Last 3 Months or Most Recently Relevant to Health Maintenance Results * MAMMO 3D GLENN DIAGNOSTIC BILAT W OR WO CAD (11/19/2023 8:44 AM CDT) Anatomical Region Laterality Modality Breast Bilateral Mammography 11/19/2023 8:44 AM CDT Impressions 11/19/2023 10:37 AM CDT IMPRESSION: 1. Normal bilateral mammogram and unremarkable ultrasound of the lower outer left breast. RECOMMENDATION: 1. Clinical management of any breast lump is recommended. Consultation with a breast surgeon should be considered for evaluation of any suspicious change on clinical follow-up. 2. Annual mammography is recommended. Dictation Location [facility] 11/19/2023 10:37 AM CDT BILATERAL FULL-FIELD DIGITAL DIAGNOSTIC MAMMOGRAM WITH 3-D TOMOSYNTHESIS AND CAD LEFT BREAST ULTRASOUND LIMITED ?? EXAM DATE: ??11/19/2023 HISTORY: The patient complains of a tender lump in the lower outer left breast. Previous breast augmentation. Family history of breast cancer in the patient's mother at the age of 52. COMPARISON: None. BREAST COMPOSITION: There are scattered areas of fibroglandular density. FINDINGS: Bilateral diagnostic mammogram: No discrete mass, architectural distortion or concerning asymmetry is identified within either breast. No discrete mammographic abnormality is seen in the area of palpable concern within the lower outer left breast. The bilateral subpectoral silicone implants appear intact. CAD is utilized. Left breast ultrasound: Targeted ultrasound was performed through the area of clinical concern in the lower outer left breast. The visible fibroglandular tissues, breast implant underlying chest wall structures appear unremarkable. No discrete solid or cystic mass is appreciated. Overall assessment: BI-RADS Category 1: Negative. Procedure Note Brigido Dan MD - 11/19/2023 BILATERAL FULL-FIELD DIGITAL DIAGNOSTIC MAMMOGRAM WITH 3-D TOMOSYNTHESIS AND CAD LEFT BREAST ULTRASOUND LIMITED EXAM DATE: 11/19/2023 HISTORY: The patient complains of a tender lump in the lower outer left breast. Previous breast augmentation. Family history of breast cancer in the patient's mother at the age of 52. COMPARISON: None. BREAST COMPOSITION: There are scattered areas of fibroglandular density. FINDINGS: Bilateral diagnostic mammogram: No discrete mass, architectural distortion or concerning asymmetry is identified within either breast. No discrete mammographic abnormality is seen in the area of palpable concern within the lower outer left breast. The bilateral subpectoral silicone implants appear intact. CAD is utilized. Left breast ultrasound: Targeted ultrasound was performed through the area of clinical concern in the lower outer left breast. The visible fibroglandular tissues, breast implant underlying chest wall structures appear unremarkable. No discrete solid or cystic mass is appreciated. Overall assessment: BI-RADS Category 1: Negative. IMPRESSION: 1. Normal bilateral mammogram and unremarkable ultrasound of the lower outer left breast. RECOMMENDATION: 1. Clinical management of any breast lump is recommended. Consultation with a breast surgeon should be considered for evaluation of any suspicious change on clinical follow-up. 2. Annual mammography is recommended. Dictation Location [facility] Emilia Lala MD MAMMO ORDERABLES Final Result from Last 3 Months or Most Recently Relevant to Health Maintenance Insurance [employer]
[2024-09-27 10:16] VITALS: BP 104/63; PULSE 92; RESP 18; TEMP 36.6; O2SAT 100
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
== END 2024-09-27 11:05 | disposition short-term general hospital (02) ==
PROVIDERS: Emergency Provider Nurse Practitioner; PCP Family Medicine
DX: S39.012A Strain of muscle, fascia and tendon of lower back, initial encounter (principal); S00.93XA Contusion of unspecified part of head, initial encounter; S16.1XXA Strain of muscle, fascia and tendon at neck level, initial encounter; S29.012A Strain of muscle and tendon of back wall of thorax, initial encounter; V89.2XXA Person injured in unspecified motor-vehicle accident, traffic, initial encounter
CPT/HCPCS: 99212; G0463; L0140

== ENCOUNTER 2024-11-04 14:39 | Outpatient (CLI) | payer OTHER, SELFPAY ==
[2024-11-04 16:00] LABS: Hematocrit 39.3 % (37.0-47.0); Hemoglobin 12.9 g/dL (12.0-15.0); Mean Corpuscular HGB Conc 32.8 g/dl (32-36); Mean Corpuscular Hemoglobin 32.7 pg (26-34); Mean Corpuscular Volume 99.5 fl (80-100); Platelet Count Result 293 k/mm3 (150-375); Red Blood Count 3.95 M/mm3 (4.2-5.4); Red Cell Distribution Width 12.6 % (11.5-14.5); White Blood Count 4.9 K/mm3 (4.5-10.0)
[2024-11-04 16:52] LABS: Erythrocyte Sedimentation Rate 15 mm/hr (0-20)
[2024-11-04 16:57] LABS: Alanine Aminotransferase 19 U/L (6-35); Alkaline Phosphatase 47 U/L (38-126); Amylase 73 U/L (30-110); Anion Gap 9 mmol/L (4-12); Aspartate Amino Transferase 23 U/L (14-36); Bilirubin,Total 0.5 mg/dL (0.2-1.3); Blood Urea Nitrogen 14 mg/dL (7-17); CRP < 0.5 mg/dL (<1.0); Calcium 8.6 mg/dL (8.4-10.2); Carbon Dioxide 27 mmol/L (22-30); Chloride 103 mmol/L (98-107); Creatine Kinase 90 U/L (30-135); Estimated Glomerular Filt Rate > 60; Glucose 76 mg/dL (65-110); Lipase 73 U/L (23-300); Potassium 4.1 mmol/L (3.4-5.0); Sodium 139 mmol/L (137-145)
== END 2024-11-04 14:40 | disposition home or self-care (01) ==
PROVIDERS: PCP Family Medicine; Visit Provider Nurse Practitioner Family
DX: R10.9 Unspecified abdominal pain (principal); K25.9 Gastric ulcer, unspecified as acute or chronic, without hemorrhage or perforation; K86.2 Cyst of pancreas
CPT/HCPCS: 36415; 80053; 82150; 82550; 83690; 85027; 85652; 86140